=== PATIENT | female | born 1950 | race Caucasian/White ===

== ENCOUNTER 2022-06-21 10:20 | Emergency (ER) | payer MEDICARE ==
[~2022-06-21] VITALS: Ht 162.6 cm; Wt 108.9 kg
[~2022-06-21 10:20] MED LIST: ESIDRIX25 MG PO; FENOFIBRATE145 MG PO; LOSARTAN POTASS25 MG PO
[2022-06-21] MEDS ORDERED: ONDANSETRON HCL 4 MG ORAL DISINTEGRATING TAB PO ONE (11:00)
[2022-06-21] MEDS ORDERED: HYDROCODONE/APAP 5MG-325MG TAB PO ONE (11:30)
[2022-06-21] MEDS ORDERED: HYDROCODON-ACE1 EA11 PO (12:51)
[2022-06-21] MEDS ORDERED: ONDANSETRON ODT4 MG PO (12:51)
== END 2022-06-21 13:35 | disposition home or self-care (01) ==
LOC: ER 10:23
DX: M25.562 Pain in left knee (principal); M17.12 Unilateral primary osteoarthritis, left knee; M23.92 Unspecified internal derangement of left knee; I48.91 Unspecified atrial fibrillation; K21.9 Gastro-esophageal reflux disease without esophagitis; M54.9 Dorsalgia, unspecified; G89.29 Other chronic pain
CPT/HCPCS: 73562; 99283; Q0162

== ENCOUNTER 2022-07-14 10:37 | Outpatient (RCR) | payer MEDICARE ==
[~2022-07-14 10:37] MED LIST changes: +HYDROCODON-ACE1 EA11 PO; +ONDANSETRON ODT4 MG PO
== END 2022-08-04 ==
LOC: PT 10:37
PROVIDERS: ATTEND Specialist
DX: M17.12 Unilateral primary osteoarthritis, left knee (principal); S86.912A Strain of unspecified muscle(s) and tendon(s) at lower leg level, left leg, initial encounter